=== PATIENT | male | born 1995 | race Asian ===

== ENCOUNTER 2020-06-08 22:55 | Emergency (ER) | payer MEDICAID ==
[~2020-06-08] VITALS: Ht 177.8 cm; Wt 80.0 kg
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
--- NOTE | 2020-06-08 23:47 | NUR ---
PT RESTING IN GURNEY, EYES CLOSED, RESP HEAR, CHEST RISE AND FALL EVEN BILATERALLY. NAD. WCTM. VSS. MTF
--- NOTE | 2020-06-09 01:08 | NUR ---
pt resting in gurney, eyes closed, easily roused now however immediately falls back to sleep, NAD, VSS. no other change in condition, WCTM. MTF.
--- NOTE | 2020-06-09 01:59 | NUR ---
Pt bedside report from Nelda rn. This rn to assume care of pt. Sleeping comfortably on gurney. Difficult to rouse, but will rouse to verbal stimuli. Monitoring remains intact. ADITYA.
[2020-06-09 02:00] VITALS: BP 111/72
--- NOTE | 2020-06-09 02:01 | NUR ---
BEDSIDE REPORT TO SHAILESH CAPUTO, PT CARE TRANSFERRED AT THIS TIME.
--- NOTE | 2020-06-09 03:58 | NUR ---
Pt ambulated to dc desk with steady gait.
== END 2020-06-09 04:00 | disposition home or self-care (01) ==
LOC: ED 23:25
DX: S60.512A Abrasion of left hand, initial encounter (principal); S60.511A Abrasion of right hand, initial encounter; G31.2 Degeneration of nervous system due to alcohol; F10.120 Alcohol abuse with intoxication, uncomplicated; Y90.9 Presence of alcohol in blood, level not specified; W22.8XXA Striking against or struck by other objects, initial encounter; Y93.89 Activity, other specified; Y92.89 Other specified places as the place of occurrence of the external cause; Y99.8 Other external cause status
CPT/HCPCS: 99283